=== PATIENT | female | born 1975 | race African-American/Black ===

== ENCOUNTER 2016-06-13 09:22 | Emergency (ER) | payer OTHER ==
[2016-06-13 09:28] VITALS: BP 108/71; PULSE 88; TEMP 98; BMI 28.8
--- NOTE | 2016-06-13 09:29 | PDOC ---
History of Present Illness - General Chief Complaint: Pain Stated Complaint: BUMP BEHIND RIGHT EAR Time Seen by Provider: 06/13/16 09:27 History Source: Patient Exam Limitations: No Limitations - History of Present Illness Initial Comments: 06/13/16 09:32 This is a 41 yo F with no significant past medical history who presents to the ER with a complaint of there being a "bumb behind" her right ear THe patient states that she has had a pimple in her right ear for the past 2 weeks, which has been draining She had a fever two days ago - 100.7 PT denies sore throat, ear pain, nausea, vomiting, diarrhea She presents today to the ER because she has noticed a firm bump behind the right ear No erythema, no deformity of the right pinna Pt has not taken motrin for pain PMH: denies PSH: denies Meds: denies ALL:Prochlorperazine Social: (+) tobacco use GENERAL/CONSTITUTIONAL: No: fever, chills, weakness HEAD, EYES, EARS, NOSE AND THROAT: No: change in vision, ear pain, discharge, sore throat, throat swelling. CARDIOVASCULAR: No: chest pain, lightheadedness, palpitations, syncope RESPIRATORY: No: cough, shortness of breath, wheezing, hemoptysis, stridor. GASTROINTESTINAL: No: nausea, vomiting, diarrhea, abdominal cramping, rectal bleeding, constipation. GENITOURINARY: No: dysuria, hematuria, frequency, urgency, flank pain. MUSCULOSKELETAL: No: back pain, neck pain, joint pain, muscle swelling or pain SKIN: No: erythema or rash NEUROLOGIC: No: headache, vertigo, paresthesias, weakness ENDOCRINE: No: unexplained weight gain or loss HEMATOLOGIC/LYMPHATIC: No: anemia, easy bleeding, swelling nodes. GENERAL: The patient is in no acute distress. HEAD: Normal with no signs of trauma. EYES: PERRLA, EOMI, sclera anicteric, conjunctiva clear. ENT: Ears normal, Right posterior auricular node palpated, tender to palpation, oropharynx clear without exudates. Moist mucous membranes. NECK: Normal range of motion, no JVD, or masses. NEUROLOGICAL: Cranial nerves II through XII grossly intact. Normal speech. No focal neurological deficits. MUSCULOSKELETAL: Back non-tender to palpation, no CVA tenderness SKIN: No posterior auricular erythema Past History - Past Medical History Allergies/Adverse Reactions: Allergies Allergy/AdvReac Type Severity Reaction Status Date / Time prochlorperazine edisylate Allergy Severe tongue Verified 06/13/16 09:24 [From Compazine] swelling prochlorperazine maleate Allergy Severe tongue Verified 06/13/16 09:24 [From Compazine] swelling Home Medications: Ambulatory Orders Cephalexin Monohydrate [Keflex -] 500 mg PO Q6H #20 capsule 06/13/16 Ibuprofen [Motrin -] 400 mg PO QID PRN 06/13/16 Ibuprofen [Motrin -] 600 mg PO TID PRN #21 tablet 06/13/16 - Psycho/Social/Smoking Cessation Hx Anxiety: No Suicidal Ideation: No Smoking Status: Yes Smoking History: Never smoked Have you smoked in the past 12 months: Yes Number of Cigarettes Smoked Daily: 5 Information on smoking cessation initiated: Yes 'Breaking Loose' booklet given: 06/13/16 Hx Alcohol Use: No Drug/Substance Use Hx: No Substance Use Type: None *Physical Exam - Vital Signs Last Vital Signs Temp Pulse Resp BP Pulse Ox 98 F 88 16 108/71 100 06/13/16 09:22 06/13/16 09:22 06/13/16 09:22 06/13/16 09:22 06/13/16 09:22 Medical Decision Making - Medical Decision Making 06/13/16 09:47 Will discharge to home Pt has what seems to be a tender posterior auricular node I believe this is related to the prior infection in the ear Will: discharge on motrin, keflex, warm compresses *DC/Admit/Observation/Transfer Diagnosis at time of Disposition: Lymph node enlargement - Discharge Dispostion Disposition: HOME Condition at time of disposition: Stable Admit: No - Prescriptions Prescriptions: Cephalexin Monohydrate [Keflex -] 500 mg PO Q6H #20 capsule Ibuprofen [Motrin -] 600 mg PO TID PRN #21 tablet PRN Reason: Pain - Patient Instructions Printed Discharge Instructions: DI for Ear Drainage Additional Instructions: Josefa Thank you for coming in to the ER today Please apply warm compresses to the area Please take motrin as needed for pain Please take Keflex as prescribed Return to the Er for high fevers Follow up with your primary care physician next week
== END 2016-06-13 10:09 | disposition home or self-care (01) ==
LOC: FER 09:22
DX: R59.9 Enlarged lymph nodes, unspecified (principal); F17.210 Nicotine dependence, cigarettes, uncomplicated
CPT/HCPCS: 99282-25

== ENCOUNTER → 2017-06-22 | Day surgery (SDC) | payer OTHER ==
--- NOTE | 2017-06-23 11:36 | PATH ---
Surgical Pathology Report Patient Name: SON PÉREZ [facility]. Rec. #: [id number] /Age/Gender: 1975 (Age: 42) / F Account: [id number] Location: [facility] Taken: 06/22/2017 Received: 06/22/2017 Reported: 06/23/2017 Physicians: Lukas Rivas M.D. 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 Electronically Signed Maxim Wise M.D. Gross Description Received in formalin, labeled "left 5:00," are 6 bird-yellow, cylindrical portions of fibroadipose tissue ranging from 0.2-1.7 cm. in length and averaging 0.1 cm. in diameter. The specimen is submitted in toto in one cassette. Time to formalin fixation: Less than one minute Total formalin fixation time: Approximately 8 hours. /06/22/[address] [facility]/22/2017
== END | disposition home or self-care (01) ==
LOC: JRADUS-SUR 10:11
PROVIDERS: ATTEND Obstetrics & Gynecology
PROC: 0HBU3ZX Excision of Left Breast, Percutaneous Approach, Diagnostic (ICD-10-PCS; principal; 2017-06-22)
DX: D24.2 Benign neoplasm of left breast (principal)
CPT/HCPCS: 19083; 87899; A4648

== ENCOUNTER 2022-11-26 17:45 | Emergency (ER) | payer OTHER ==
[2022-11-26 18:11] VITALS: BP 130/83; PULSE 94; RESP 16; TEMP 98.1; BMI 29.0
[2022-11-26] MEDS ORDERED: DEXAMETHASONE SOD PHOSPHATE 10 MG/1 ML VIAL IM ONE (19:04)
[2022-11-26] MEDS ORDERED: FAMOTIDINE 20 MG TABLET PO ONE (19:04)
[2022-11-26] MEDS ORDERED: diphenhydrAMINE HCL 25 MG CAPSULE (FP) PO ONE ×2 (19:04→19:37)
[2022-11-26] MEDS ORDERED: FAMOTIDINE 20 MG TABLET ONE (19:37)
[2022-11-26] MEDS ORDERED: DEXAMETHASONE SOD PHOSPHATE 10 MG/1 ML VIAL ONE (19:38)
[2022-11-26 21:01] LABS: SYPHILIS W/ RPR CONF NON-REACTIVE (NONREACTIVE)
[2022-11-26 21:28] LABS: HIV INTERPRETATION NEGATIVE (NEGATIVE)
== END 2022-11-26 21:05 | disposition left against medical advice (07) ==
LOC: JER 17:45 → JERFT 17:45
PROC: 3E023GC Introduction of Other Therapeutic Substance into Muscle, Percutaneous Approach (ICD-10-PCS; principal; 2022-11-26)
DX: R21 Rash and other nonspecific skin eruption (principal)
CPT/HCPCS: 36415; 86780; 87389; 87651; 99284-25; J1100